=== PATIENT | female | born 1965 | race Hispanic/Latino ===

== ENCOUNTER → 2019-05-18 | Outpatient (CLI) | payer MEDICARE ==
--- NOTE | 2019-05-18 09:30 | NUR ---
U/S GUIDED BIOPSY/FINE NEEDLE ASPIRATION OF RIGHT THYROID NODULE ORDERED. NOT DONE. ULTRASOUND IMAGES OBTAINED BY CHAR MCGREGOR. DR. RODRIGEZ REVIEWED THE IMAGES. DR. RODRIGEZ INSTRUCTED PATIENT THAT THE IMAGES OBTAINED NO NEED TO DO BIOPSY, NODULE LOOKS BENIGN. PATIENT INSTRUCTED TO F/U WITH ORDERING DR. NORTON AND TO HAVE A FOLLOWUP ULTRASOUND IN 6 MONTHS TO A YEAR.
[2019-05-18 09:39] LABS: INR 0.94 (0.85-1.15); PARTIAL THROMBOPLASTIN TIME 25.8 SEC (26.3-35.5); PROTHROMBIN TIME 9.9 SEC (9.6-11.6)
== END | disposition home or self-care (01) ==
LOC: RAH 07:54
PROVIDERS: ATTEND Internal Medicine
DX: E04.1 Nontoxic single thyroid nodule (principal); E83.52 Hypercalcemia; M85.80 Other specified disorders of bone density and structure, unspecified site
CPT/HCPCS: 36415; 76536; 85610; 85730

== ENCOUNTER → 2020-02-05 | Outpatient (CLI) | payer MEDICARE, OTHER | END | disposition home or self-care (01) | LOC: RAH 08:53 | PROVIDERS: ATTEND Internal Medicine Endocrinology, Diabetes & Metabolism | DX: E04.1 Nontoxic single thyroid nodule (principal); R53.81 Other malaise; E78.2 Mixed hyperlipidemia; R94.6 Abnormal results of thyroid function studies | CPT/HCPCS: 76536 ==